=== PATIENT | female | born 1965 | race Caucasian/White ===

== ENCOUNTER 2017-03-30 15:16 | Emergency (ER) | payer SELFPAY | END 2017-03-30 16:17 | disposition left against medical advice (07) | LOC: EME 15:16 | DX: Z76.0 Encounter for issue of repeat prescription (principal); Z53.21 Procedure and treatment not carried out due to patient leaving prior to being seen by health care provider ==

== ENCOUNTER 2017-05-27 12:55 | Emergency (ER) | payer OTHER ==
[~2017-05-27] VITALS: Ht 160 cm; Wt 83.4 kg
[2017-05-27] MEDS ORDERED: TOPAMAX (14:54)
[2017-05-27] MEDS ORDERED: WELLBUTRIN XL300 MG PO ×2 (14:55→15:21)
[2017-05-27 15:33] VITALS: BP 123/86
== END 2017-05-27 15:34 | disposition home or self-care (01) ==
LOC: EME 12:55
DX: R51 Headache (principal); F41.9 Anxiety disorder, unspecified; Z76.0 Encounter for issue of repeat prescription; F32.9 Major depressive disorder, single episode, unspecified; F17.200 Nicotine dependence, unspecified, uncomplicated
CPT/HCPCS: 99281; 99284; J1885